=== PATIENT | female | born 1960 | race Caucasian/White ===

== ENCOUNTER 2018-03-06 11:28 | Emergency (ER) | payer OTHER ==
[~2018-03-06] VITALS: Ht 165.1 cm; Wt 74.8 kg
[~2018-03-06 11:28] MED LIST: DOXYCYCLINE 10100 MG PO; HYDROCODON-ACE1 EAC7 PO; LISINOPRIL10 MG PO
[2018-03-06 12:29] LABS: ABSOLUTE BASOPHILS 0.1 thou/uL (0.0-0.2); ABSOLUTE EOSINOPHILS 0.2 thou/uL (0.0-0.7); ABSOLUTE LYMPHOCYTES 1.5 thou/uL (0.8-5.3); ABSOLUTE MONOCYTES 0.7 thou/uL (0.0-1.2); ABSOLUTE NEUTROPHILS 6.8 thou/uL (1.6-8.1); BASOPHILS 0.6 %; EOSINOPHILS 1.7 %; HEMATOCRIT 41.2 % (37.0-47.0); HEMOGLOBIN 14.1 gm/dL (12.0-15.0); LYMPHOCYTES 16.4 %; MCH 29.8 pg (26.0-34.0); MCHC 34.3 g/dL (28.0-37.0); MCV 86.9 fL (80.0-100.0); MONOCYTES 7.4 %; MPV 7.5 fl. (7.2-11.1); NUCLEATED RBCS 0 /100WBC; PLATELET COUNT* 302 thou/uL (150-400); POLYS 73.9 %; RBC 4.74 mil/uL (4.20-5.00); RDW-CV 14.7 % (10.5-14.5); WBC 9.3 thou/uL (4.0-11.0)
[2018-03-06 12:44] LABS: CALCIUM 10.2 mg/dL (8.5-10.1); POTASSIUM 3.6 mmol/L (3.5-5.1)
[2018-03-06 12:54] LABS: ALBUMIN 3.7 g/dL (3.4-5.0); TOTAL BILIRUBIN 0.3 mg/dL (<0.1-1.0); TOTAL PROTEIN 7.9 g/dL (6.4-8.2)
[2018-03-06 13:01] LABS: URINE BILIRUBIN NEGATIVE (Negative); URINE BLOOD 2+ (Negative); URINE CLARITY CLEAR; URINE COLOR YELLOW; URINE GLUCOSE-RANDOM NEGATIVE (Negative); URINE KETONES NEGATIVE (Negative); URINE LEUKOCYTES-REFLEX 2+ (Negative); URINE NITRITE-REFLEX POSITIVE (Negative); URINE PROTEIN TRACE (Negative); URINE UROBILINOGEN 0.2 E.U./dl (0.2-1.0)
[2018-03-06 13:10] LABS: AMP/METHAMP POSITIVE (Negative); BARBITURATES Negative (Negative); BENZODIAZEPINES Negative (Negative); COCAINE Negative (Negative); METHADONE Negative (Negative); OPIATES Negative (Negative); PCP Negative (Negative); THC Negative (Negative)
[2018-03-06 13:16] LABS: CASTS None Seen /LPF (None Seen); CRYSTALS None Seen /LPF (None Seen); SQUAMOUS >10 Many /LPF (0-3); URINE RBC 3-10 Few /HPF (0-2); URINE WBC-REFLEX 6-15 Few /HPF (0-5)
[2018-03-06] MEDS ORDERED: VALIUM2 MG PO (13:37)
[2018-03-06] MEDS ORDERED: CIPROFLOXACIN500 M1 PO (13:37)
[2018-03-06] MEDS ORDERED: HYDROCHLOROTH12.5 M1 PO (14:15)
[2018-03-06] MEDS ORDERED: LISINOPRIL5 MG PO (14:15)
[2018-03-06 14:19] VITALS: BP 184/105
== END 2018-03-06 14:19 | disposition home or self-care (01) ==
LOC: M.ERS 11:28
PROVIDERS: Personal Emergency Response Attendant
DX: N39.0 Urinary tract infection, site not specified (principal); R42 Dizziness and giddiness; I10 Essential (primary) hypertension; E78.00 Pure hypercholesterolemia, unspecified; Z86.19 Personal history of other infectious and parasitic diseases

== ENCOUNTER 2019-09-13 13:43 | Emergency (ER) | payer OTHER ==
[~2019-09-13] VITALS: Ht 167.6 cm; Wt 74.8 kg
--- NOTE | ~2019-09-13 | EKG ---
[place] [address] ELECTROCARDIOGRAM REPORT Name: JIM GUNTER Room: [facility]#: [id number] Admission: 09/13/19 Attend Phys: Discharge: 09/13/19 Date of : 62 Date of Service: 09/13/19 1426 Report #: [id number] THIS REPORT FOR: cc: FAM - No family physician/PCP FAM - No family physician/PCP Xavier Park MD ~ THIS REPORT FOR: //name// [facility] ED Test Date: 2019-09-13 Test Time: 14:26:40 Pat Name: JIM GUNTER Department: Room: Gender: F Literary Agent: MONICA : 1960 Requested By: Medhat Bernal Order Number: [id number] MD: Measurements Intervals [place] Rate: 66 P: 33 TN: 181 QRS: -12 QRSD: 78 T: 68 QT: 454 QTc: 476 Interpretive Statements Sinus rhythm Anterior infarct, old No previous ECG available for comparison [email or web address] By: 142 1426 [place], [place] /EPI
[~2019-09-13 13:43] MED LIST changes: +CIPROFLOXACIN500 M1 PO; +HYDROCHLOROTH12.5 M1 PO; +LISINOPRIL5 MG PO; +VALIUM2 MG PO
[2019-09-13 14:27] LABS: ABSOLUTE EOSINOPHILS 0.3 thou/uL (0.0-0.7); ABSOLUTE LYMPHOCYTES 1.9 thou/uL (0.8-5.3); ABSOLUTE MONOCYTES 0.7 thou/uL (0.0-1.2); ABSOLUTE NEUTROPHILS 4.9 thou/uL (1.6-8.1); BASOPHILS 0.2 %; EOSINOPHILS 3.5 %; HEMATOCRIT 41.6 % (37.0-47.0); HEMOGLOBIN 14.1 gm/dL (12.0-15.0); LYMPHOCYTES 24.1 %; MCHC 33.9 g/dL (28.0-37.0); MCV 85.6 fL (80.0-100.0); MONOCYTES 8.8 %; MPV 7.9 fl. (7.2-11.1); NUCLEATED RBCS 0 /100WBC; PLATELET COUNT* 300 thou/uL (150-400); POLYS 63.4 %; RBC 4.86 mil/uL (4.20-5.00); RDW-CV 14.2 % (10.5-14.5); WBC 7.7 thou/uL (4.0-11.0)
[2019-09-13 14:41] LABS: APTT 26.3 Seconds (25.0-31.3); INR 0.9; PROTIME 9.4 Seconds (9.20-11.50)
[2019-09-13 14:46] LABS: CALCIUM 8.8 mg/dL (8.5-10.1); CREATININE 1.1 mg/dL (0.6-1.3)
[2019-09-13 14:55] LABS: ALBUMIN 3.8 g/dL (3.4-5.0); CK-MB MASS 1.5 ng/mL (<0.5-3.6); MAGNESIUM 2.2 mg/dL (1.8-2.4); TOTAL BILIRUBIN 0.1 mg/dL (<0.1-1.0); TOTAL PROTEIN 7.9 g/dL (6.4-8.2)
[2019-09-13 15:38] VITALS: BP 147/89
== END 2019-09-13 15:38 | disposition home or self-care (01) ==
LOC: M.ERS 13:43
PROVIDERS: Family Medicine
DX: I10 Essential (primary) hypertension (principal); E78.00 Pure hypercholesterolemia, unspecified; Z86.19 Personal history of other infectious and parasitic diseases

== ENCOUNTER 2020-05-29 14:58 | Emergency (ER) | payer MEDICAID ==
[~2020-05-29] VITALS: Ht 167.6 cm; Wt 80.7 kg
[2020-05-29] MEDS ORDERED: NORVASC 2.5 MG2.5 M1 PO (15:14)
[2020-05-29 15:44] LABS: ABSOLUTE BASOPHILS 0.1 thou/uL (0.0-0.2); ABSOLUTE EOSINOPHILS 0.1 thou/uL (0.0-0.7); ABSOLUTE LYMPHOCYTES 1.7 thou/uL (0.8-5.3); ABSOLUTE MONOCYTES 0.9 thou/uL (0.0-1.2); ABSOLUTE NEUTROPHILS 9.7 thou/uL (1.6-8.1); BASOPHILS 0.5 %; EOSINOPHILS 0.9 %; HEMATOCRIT 41.6 % (37.0-47.0); HEMOGLOBIN 13.9 gm/dL (12.0-15.0); LYMPHOCYTES 13.5 %; MCH 28.4 pg (26.0-34.0); MCHC 33.5 g/dL (28.0-37.0); MCV 84.8 fL (80.0-100.0); MONOCYTES 6.9 %; MPV 7.1 fl. (7.2-11.1); NUCLEATED RBCS 0 /100WBC; PLATELET COUNT* 371 thou/uL (150-400); POLYS 78.2 %; RBC 4.91 mil/uL (4.20-5.00); RDW-CV 14.9 % (10.5-14.5); WBC 12.4 thou/uL (4.0-11.0)
[2020-05-29 15:58] LABS: CALCIUM 10.4 mg/dL (8.5-10.1); POTASSIUM 3.6 mmol/L (3.5-5.1)
[2020-05-29 16:03] LABS: ALBUMIN 3.9 g/dL (3.4-5.0); TOTAL BILIRUBIN 0.2 mg/dL (<0.1-1.0); TOTAL PROTEIN 7.6 g/dL (6.4-8.2)
[2020-05-29] MEDS ORDERED: ZOFRAN ODT4 MG DISSOLVE (16:38)
[2020-05-29] MEDS ORDERED: CARAFATE1 GM PO (16:38)
[2020-05-29] MEDS ORDERED: BENTYL 20 MG TA20 M1 PO (16:38)
[2020-05-29 16:49] VITALS: BP 135/98
--- NOTE | 2020-05-30 10:01 | EKG ---
[place] [address] ELECTROCARDIOGRAM REPORT Name: JIM GUNTER Room: [facility]#: [id number] Admission: 05/29/20 Attend Phys: Discharge: 05/29/20 Date of : 62 Date of Service: 05/29/20 1514 Report #: [id number] THIS REPORT FOR: //name// [facility] ED Test Date: 2020-05-29 Test Time: 15:14:07 Pat Name: JIM GUNTER Department: Room: Gender: Pcmh Specialist: : 1960 Requested By: Duncan Ruiz Order Number: [id number] MD: Fan Meng Measurements Intervals [place] Rate: 81 P: 39 MI: 179 QRS: -5 QRSD: 86 T: 66 QT: 390 QTc: 453 Interpretive Statements Sinus rhythm Left atrial enlargement Anterior infarct, old Compared to ECG 09/13/2019 14:26:40 Atrial abnormality now present Myocardial infarct finding still present Electronically Signed On 05-30-2020 10:00:58 CDT by Fan Meng [email or web address] <ELECTRONICALLY SIGNED> By: Fan Meng MD, FACC 05/30/20 1000 1514 1514 Fan Meng MD, FAC /EPI
== END 2020-05-29 16:49 | disposition home or self-care (01) ==
LOC: M.ERS 14:58
PROVIDERS: Emergency Medicine Emergency Medical Services
DX: R11.0 Nausea (principal); Z20.828 Contact with and (suspected) exposure to other viral communicable diseases; I10 Essential (primary) hypertension; E78.00 Pure hypercholesterolemia, unspecified; F17.210 Nicotine dependence, cigarettes, uncomplicated; Z86.19 Personal history of other infectious and parasitic diseases

== ENCOUNTER 2020-08-06 13:40 | Emergency (ER) | payer MEDICAID ==
[~2020-08-06] VITALS: Ht 165.1 cm; Wt 74.8 kg
[~2020-08-06 13:40] MED LIST changes: +BENTYL 20 MG TA20 M1 PO; +CARAFATE1 GM PO; +NORVASC 2.5 MG2.5 M1 PO; +ZOFRAN ODT4 MG DISSOLVE
[2020-08-06 14:37] VITALS: BP 168/104
== END 2020-08-06 14:39 | disposition home or self-care (01) ==
LOC: M.ERS 13:40
DX: J98.8 Other specified respiratory disorders (principal); Z20.828 Contact with and (suspected) exposure to other viral communicable diseases; I10 Essential (primary) hypertension; E78.00 Pure hypercholesterolemia, unspecified; J44.9 Chronic obstructive pulmonary disease, unspecified; Z86.19 Personal history of other infectious and parasitic diseases

== ENCOUNTER 2020-09-05 02:24 | Emergency (ER) | payer MEDICAID ==
[~2020-09-05] VITALS: Ht 165.1 cm; Wt 81.7 kg
[2020-09-05 06:44] LABS: ABSOLUTE BASOPHILS 0.1 thou/uL (0.0-0.2); ABSOLUTE EOSINOPHILS 0.2 thou/uL (0.0-0.7); ABSOLUTE LYMPHOCYTES 1.8 thou/uL (0.8-5.3); ABSOLUTE MONOCYTES 0.7 thou/uL (0.0-1.2); ABSOLUTE NEUTROPHILS 5.1 thou/uL (1.6-8.1); EOSINOPHILS 2.1 %; HEMATOCRIT 37.6 % (37.0-47.0); HEMOGLOBIN 12.8 gm/dL (12.0-15.0); LYMPHOCYTES 22.8 %; MCH 29.1 pg (26.0-34.0); MCHC 34.1 g/dL (28.0-37.0); MCV 85.4 fL (80.0-100.0); MONOCYTES 9.3 %; MPV 7.2 fl. (7.2-11.1); NUCLEATED RBCS 0 /100WBC; PLATELET COUNT* 314 thou/uL (150-400); POLYS 64.8 %; RBC 4.41 mil/uL (4.20-5.00); WBC 7.9 thou/uL (4.0-11.0)
[2020-09-05 06:53] LABS: CALCIUM 8.7 mg/dL (8.5-10.1); CREATININE 0.9 mg/dL (0.6-1.3); POTASSIUM 3.4 mmol/L (3.5-5.1)
[2020-09-05 06:56] LABS: APTT 25.3 Seconds (25.0-31.3); PROTIME 9.9 Seconds (9.20-11.50)
[2020-09-05 06:58] LABS: INR < 0.9
[2020-09-05 07:03] LABS: ALBUMIN 3.5 g/dL (3.4-5.0); TOTAL BILIRUBIN 0.2 mg/dL (<0.1-1.0)
[2020-09-05 07:35] VITALS: BP 145/70
--- NOTE | 2020-09-05 13:57 | EKG ---
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: [place] : 1960 Requested By: Kimberlee Rouse Order Number: [id number] MD: Fan Meng Measurements Intervals [place] Rate: 70 P: 41 IN: 193 QRS: 12 QRSD: 101 T: 62 QT: 423 QTc: 457 Interpretive Statements Sinus rhythm Anterior infarct, old Baseline wander in lead(s) V4 Compared to ECG 05/29/2020 15:14:07 Atrial abnormality no longer present Myocardial infarct finding still present Electronically Signed On 09-05-2020 13:56:45 [place] by Fan Meng [email or web address] <ELECTRONICALLY SIGNED> By: Fan Meng MD, FAC 09/05/20 1356 0257 0257 Fan Meng MD, [facility] /EPI
== END 2020-09-05 07:36 | disposition home or self-care (01) ==
LOC: M.ERS 02:24
PROVIDERS: Personal Emergency Response Attendant
DX: R60.0 Localized edema (principal); I10 Essential (primary) hypertension; E78.5 Hyperlipidemia, unspecified; J44.9 Chronic obstructive pulmonary disease, unspecified; Z79.899 Other long term (current) drug therapy; Z88.5 Allergy status to narcotic agent; Z20.828 Contact with and (suspected) exposure to other viral communicable diseases

== ENCOUNTER 2021-02-10 12:43 | Emergency (ER) | payer MEDICAID ==
[~2021-02-10] VITALS: Ht 167.6 cm; Wt 79.4 kg
[2021-02-10] MEDS ORDERED: TESSALON PERLE100 MG PO (14:05)
[2021-02-10] MEDS ORDERED: PROMETHAZI6.25 MG/5 PO (14:05)
[2021-02-10] MEDS ORDERED: PREDNISONE 20 M20 MG PO (14:05)
[2021-02-10 14:15] VITALS: BP 167/110
== END 2021-02-10 14:17 | disposition home or self-care (01) ==
LOC: M.ERS 12:43
DX: U07.1 COVID-19 (principal); I10 Essential (primary) hypertension; J44.9 Chronic obstructive pulmonary disease, unspecified; Z88.5 Allergy status to narcotic agent; Z86.19 Personal history of other infectious and parasitic diseases

== ENCOUNTER 2021-02-13 18:01 | Emergency (ER) | payer MEDICAID ==
[~2021-02-13] VITALS: Ht 167.6 cm; Wt 81.7 kg
[~2021-02-13 18:01] MED LIST changes: +PREDNISONE 20 M20 MG PO; +PROMETHAZI6.25 MG/5 PO; +TESSALON PERLE100 MG PO
[2021-02-13 18:08] VITALS: BP 206/96
[2021-02-13] MEDS ORDERED: VISTARIL 25 MG25 M1 PO (18:42)
[2021-02-13] MEDS ORDERED: ZPAK PO (18:42)
== END 2021-02-13 18:54 | disposition home or self-care (01) ==
LOC: M.ERS 18:01
DX: U07.1 COVID-19 (principal); J18.9 Pneumonia, unspecified organism; I10 Essential (primary) hypertension; E78.5 Hyperlipidemia, unspecified; J45.909 Unspecified asthma, uncomplicated; J44.9 Chronic obstructive pulmonary disease, unspecified; Z86.19 Personal history of other infectious and parasitic diseases; Z88.5 Allergy status to narcotic agent

== ENCOUNTER 2021-04-04 15:12 | Emergency (ER) | payer MEDICAID ==
[~2021-04-04] VITALS: Ht 167.6 cm; Wt 79.8 kg
[~2021-04-04 15:12] MED LIST changes: +VISTARIL 25 MG25 M1 PO; +ZPAK PO
[2021-04-04] MEDS ORDERED: MOBIC7.5 MG PO (17:54)
[2021-04-04 17:58] VITALS: BP 166/95
== END 2021-04-04 17:59 | disposition home or self-care (01) ==
LOC: M.ERS 15:12
DX: S80.02XA Contusion of left knee, initial encounter (principal); S90.01XA Contusion of right ankle, initial encounter; S00.03XA Contusion of scalp, initial encounter; I10 Essential (primary) hypertension; E78.00 Pure hypercholesterolemia, unspecified; J45.909 Unspecified asthma, uncomplicated; J44.9 Chronic obstructive pulmonary disease, unspecified; F17.210 Nicotine dependence, cigarettes, uncomplicated; Z88.5 Allergy status to narcotic agent; V49.49XA Driver injured in collision with other motor vehicles in traffic accident, initial encounter; Y93.19 Activity, other involving water and watercraft; Y92.89 Other specified places as the place of occurrence of the external cause; Y99.8 Other external cause status

== ENCOUNTER 2021-08-02 06:59 | Emergency (ER) | payer MEDICAID ==
[~2021-08-02] VITALS: Ht 167.6 cm; Wt 79.4 kg
[~2021-08-02 06:59] MED LIST changes: +MOBIC7.5 MG PO
[2021-08-02 07:12] VITALS: BP 229/129
== END 2021-08-02 07:39 | disposition left against medical advice (07) ==
LOC: M.ERS 06:59
DX: R10.9 Unspecified abdominal pain (principal); Z53.21 Procedure and treatment not carried out due to patient leaving prior to being seen by health care provider